=== PATIENT | male | born 1955 | race Caucasian/White ===

== ENCOUNTER 2017-06-03 07:34 | Day surgery (SDC) | payer BC ==
[2017-06-03] MEDS ORDERED: Sodium Chloride 0.9% 10 ML Syringe FLUSH PRN (07:45)
[2017-06-03] MEDS ORDERED: Lactated Ringers 1,000 ML IV SCH (07:45)
[2017-06-03] MEDS ORDERED: Simethicone Drops 40 MG/0.6 ML 30 ML Bottle ONE (09:29)
[2017-06-03] MEDS ORDERED: Midazolam 1 MG/ML 2 ML SDV IV ONE (09:30)
[2017-06-03] MEDS ORDERED: Propofol 200 MG/20 ML SDV IV ONE (09:30)
--- NOTE | 2017-06-03 09:43 | PCM.OPNOTE ---
- General Post-Op/Procedure Note Date of Surgery/Procedure: 06/03/17 Operative Procedure(s): c scope with bx Findings: descending colon polyp Pre Op Diagnosis: screening Post-Op Diagnosis: descending colon polyp Anesthesia Technique: MAC Primary Surgeon: Hari Mantilla Anesthesia Provider: Raul Carey Pathology: descending colon polyp Complications: None Condition: Good Free Text/Narrative:: see dictation
--- NOTE | 2017-06-03 15:19 | OR ---
DATE OF OPERATION: 06/03/2017 SURGEON: Hari Mantilla MD PROCEDURE PERFORMED: Colonoscopy with cold forceps biopsy. PREOPERATIVE DIAGNOSIS: Need for screening colonoscopy. POSTOPERATIVE DIAGNOSIS: Descending colon polyp. INDICATIONS FOR PROCEDURE: This is a 61-year-old white male who presents for his initial screening colonoscopy. He was offered and accepted same. DESCRIPTION OF OPERATION: After an excellent IV sedation was administered, digital rectal exam was performed. No marked abnormality was noted. The flexible colonoscope was inserted and advanced to the cecum without difficulty. The prep was excellent. The following findings were noted. Ascending colon unremarkable. Transverse colon unremarkable. Descending colon: A small polypoid lesion, approximately 3 mm in size, biopsied with cold biopsy forceps,and sent for permanent. Sigmoid and rectum unremarkable. Colon was deflated. The scope was removed. The patient tolerated the procedure well. Results by letter. /[id number] AMELIE/LAURA
== END 2017-06-03 10:50 | disposition home or self-care (01) ==
LOC: FB.SDS 07:34
PROVIDERS: ATTEND Surgery
DX: Z12.11 Encounter for screening for malignant neoplasm of colon (principal); D12.4 Benign neoplasm of descending colon; I10 Essential (primary) hypertension; E66.9 Obesity, unspecified; Z79.84 Long term (current) use of oral hypoglycemic drugs; Z79.899 Other long term (current) drug therapy; Z98.890 Other specified postprocedural states
CPT/HCPCS: 45380; 82962; 88305; A9270; J2250; J2704; J7120

== ENCOUNTER 2019-06-08 07:11 | Day surgery (SDC) | payer BC ==
[2019-06-08] MEDS ORDERED: Propofol 200 MG/20 ML SDV IV ONE (07:12)
[2019-06-08] MEDS ORDERED: Lidocaine 1% PF 2 ML SDV INJECT ONE (07:12)
[2019-06-08] MEDS ORDERED: Sodium Chloride 0.9% 10 ML Syringe FLUSH PRN (07:15)
[2019-06-08] MEDS ORDERED: Lactated Ringers 1,000 ML IV SCH (07:15)
--- NOTE | 2019-06-08 09:33 | PCM.OPNOTE ---
- General Post-Op/Procedure Note Date of Surgery/Procedure: 06/08/19 Operative Procedure(s): c scope with cold forcep and hot loop snare biospy Findings: ascending colon polyp x4 5 mm x2 1 cm -2 cm x2 Pre Op Diagnosis: heme + stools Post-Op Diagnosis: ascending colon polyp x4 Anesthesia Technique: FAUSTINO Primary Surgeon: Hari Mantilla Anesthesia Provider: Yung Salvador Pathology: ascending colon polyp x4 Complications: None Condition: Good Free Text/Narrative:: see dictation
--- NOTE | 2019-06-08 09:33 | PREOP ---
ADMISSION DATE: 06/08/2019 CHIEF COMPLAINT: Heme-positive stools on recent physical exam. HISTORY OF PRESENT ILLNESS: A 63-year-old white male was undergoing his recent physical exam, had a rectal exam performed, was noted to be guaiac positive. He is completely asymptomatic. His next colonoscopy is due in 2022; however, given his complaint of the finding, we recommended that we move this up. SOCIAL HISTORY: The patient does not smoke. Has approximately 12 cans of beer a week. PAST MEDICAL HISTORY: Significant for hypertension. PAST SURGICAL HISTORY: Significant for colonoscopy. MEDICATIONS INCLUDE: 1. Viagra 100 mg 1/2 tablet on a p.r.n. basis. 2. Toprol XL 50 mg daily. 3. Lipitor 10 mg at bedtime. 4. Hyzaar 100/25 mg tablets 1 tablet q.a.m. 5. Lasix 40 mg 1 time per day. 6. Metformin 500 mg b.i.d. 7. Baby aspirin 81 mg 1 time per day. REVIEW OF SYSTEMS: HEENT: The patient denies any issues with HEENT. PULMONARY/CARDIAC: Negative. GASTROINTESTINAL: Negative. GENITOURINARY: Negative. NEUROLOGIC: Negative. PHYSICAL EXAMINATION: GENERAL: This is a well-developed, well-nourished white male, appearing in no acute distress. HEENT: Within normal limits. LUNGS: Clear to auscultation. HEART: Had regular rate and rhythm with a systolic ejection murmur audible. ABDOMEN: Soft, nontender. ASSESSMENT: History of heme-positive stools. PLAN: Colonoscopy. Procedure and risks explained to the patient to include bleeding, perforation, and infection. The patient expresses understanding and he asked us to proceed. /[id number] /MODL
--- NOTE | 2019-06-08 10:22 | OR ---
DATE OF OPERATION: 06/08/2019 SURGEON: Hari Mantilla MD PROCEDURE PERFORMED: Colonoscopy with cold forceps biopsy. PREOPERATIVE DIAGNOSIS: Heme-positive stools on recent physical exam. POSTOPERATIVE DIAGNOSIS: Ascending colon polyps x4. INDICATIONS FOR PROCEDURE: This is a 63-year-old white male who was noted to have heme-positive stools on physical exam. He was offered and accepted colonoscopy. DESCRIPTION OF OPERATION: After an excellent IV sedation was administered, digital rectal exam was performed. No marked abnormality was noted. Flexible colonoscope was inserted and advanced to the cecum. Prep was excellent. Following findings were noted. Ascending colon, remarkable for a grand total of 4 polyps. Two of them were biopsied with cold forceps. The other two were taken with hot forceps and were submitted in 1 container. The largest of the 2 were approximately 1 and 2 cm in their greatest width. Transverse colon was unremarkable. Descending colon was unremarkable. Sigmoid and rectum were unremarkable. The patient tolerated the procedure well, was taken to recovery room in good condition. Results will be sent to the patient by letter. /[id number] /MODL
== END 2019-06-08 10:18 | disposition home or self-care (01) ==
LOC: FB.SDS 07:11
PROVIDERS: ATTEND Surgery
DX: D12.2 Benign neoplasm of ascending colon (principal); I10 Essential (primary) hypertension; E66.9 Obesity, unspecified; Z68.41 Body mass index [BMI] 40.0-44.9, adult
CPT/HCPCS: 88305; J2001; J2704; J7120

== ENCOUNTER 2020-07-06 22:01 | Emergency (ER) | payer MEDICARE, BC ==
[2020-07-06] MEDS ORDERED: Diltiazem 25 MG/5 ML SDV IVPUSH ONE (22:22)
[2020-07-06] MEDS ORDERED: Potassium Chloride 20 MEQ Tab.ER PO ONE (22:54)
--- NOTE | 2020-07-06 22:54 | EDM.PDOC ---
ED HPI GENERAL MEDICAL PROBLEM - General Stated Complaint: RACING HEART Time Seen by Provider: 07/06/20 22:10 Source of Information: Reports: Patient, Family History Limitations: Reports: No Limitations - History of Present Illness INITIAL COMMENTS - FREE TEXT/NARRATIVE: c/o palpitations pt with palpitations last night at 1a, said he does not sleep well, no CP, HR 126 at 1a when he checked his BP, resolved in 15 min went to cardiac rehab here for 30 minutes today, felt okay during day at 9p he had palpitations again his diuretic was stopped 1w after d/c from hosp he had AVR for on 06/[address] Linda Riley in [facility], had gone for preop for TKR and told he had to have AVR replacement first, did not know he had heart issues no cp, no sob, had had COVID vax x 2, did not have COVID, feels fine otherwise - Related Data Allergies Allergy/AdvReac Type Severity Reaction Status Date / Time No Known Allergies Allergy Verified 07/06/20 22:36 Home Meds: Home Meds Aspirin [Halfprin] 81 mg PO DAILY 06/02/17 [History] Furosemide 40 mg PO DAILY 06/02/17 [History] Hydrochlorothiazide/Losartan [Hyzaar 50-12.5 MG] 0.5 tab PO DAILY 06/02/17 [History] Metoprolol Succinate 50 mg PO DAILY 06/02/17 [History] Sildenafil [Viagra] 50 mg PO ASDIRECTED PRN 06/02/17 [History] atorvaSTATin Calcium [Atorvastatin Calcium] 10 mg PO BEDTIME 06/02/17 [History] metFORMIN HCl [Metformin HCl] 500 mg PO BID 06/02/17 [History] Past Medical History Cardiovascular History: Reports: Hypertension, Other (See Below) Other Cardiovascular History: aortic valve stenosis Gastrointestinal History: Reports: Colon Polyp Musculoskeletal History: Reports: Arthritis Endocrine/Metabolic History: Reports: Obesity/BMI 30+ - Past Surgical History GI Surgical History: Reports: Colonoscopy Social & Family History - Caffeine Use Caffeine Use: Reports: Coffee ED ROS GENERAL - Review of Systems Review Of Systems: See Below Constitutional: Reports: No Symptoms HEENT: Reports: No Symptoms Respiratory: Reports: No Symptoms. Denies: Shortness of Breath, Cough Cardiovascular: Reports: Edema, Palpitations. Denies: Chest Pain Endocrine: Reports: No Symptoms GI/Abdominal: Reports: No Symptoms : Reports: No Symptoms Musculoskeletal: Reports: No Symptoms Skin: Reports: No Symptoms Neurological: Reports: No Symptoms Psychiatric: Reports: No Symptoms Hematologic/Lymphatic: Reports: No Symptoms Immunologic: Reports: No Symptoms ED EXAM, GENERAL - Physical Exam Exam: See Below Exam Limited By: No Limitations General Appearance: Alert, WD/WN, No Apparent Distress, Other (pleasant, dec'd HR 115 to 95 after dilt 10 mg IV, stable BP) Eye Exam: Bilateral Eye: Foreign Body, PERRL Ears: Hearing Grossly Normal Nose: Normal Inspection Throat/Mouth: Normal Inspection Head: Atraumatic, Normocephalic Neck: Normal Inspection, Supple, Non-Tender, Full Range of Motion. No: Lymphadenopathy (R), Lymphadenopathy (L) Respiratory/Chest: No Respiratory Distress, Lungs Clear, Normal Breath Sounds, Chest Non-Tender Cardiovascular: Regular Rate, Rhythm, No Edema, No Murmur GI/Abdominal: Soft, Non-Tender, No Distention Back Exam: Normal Inspection, Full Range of Motion Extremities: Normal Inspection, Normal Range of Motion, Other (2+ pretib edema to knees b/l) Neurological: Alert, Oriented, CN II-XII Intact, Normal Cognition, No Motor/Sensory Deficits Psychiatric: Normal Affect, Normal Mood Skin Exam: Warm, Dry, Intact, Normal Color, No Rash Lymphatic: No Adenopathy #1 Interpretation EKG Interpretation Comments: afib with RVR, no acute ST changes, no comparison Course - Vital Signs Last Recorded V/S: Last Vital Signs Temp 36.7 C 07/06/20 22:01 Pulse 134 H 07/06/20 22:01 Resp 20 07/06/20 22:01 BP 172/89 H 07/06/20 22:01 Pulse Ox 98 07/06/20 22:01 - Orders/Labs/Meds Orders: Active Orders 24 hr Category Date Time Status EKG Documentation Completion [RC] ASDIRECTED Care 07/06/20 22:24 Ordered Chest 1V Frontal [CR] Stat Exams 07/06/20 22:23 Ordered MAGNESIUM [CHEM] Stat Lab 07/06/20 22:53 Ordered UA W/MICROSCOPIC [URIN] Stat Lab 07/06/20 22:24 Ordered Diltiazem 125 MG in Normal Saline @ 5 MG/HR (125 ml) Med 07/06/20 23:00 Ordered Diltiazem 125 mg Sodium Chloride 0.9% [Normal Saline] 100 ml IV TITRATE EKG 12 Lead [EK] Routine Ther 07/06/20 22:24 Ordered Medication Orders Diltiazem HCl 125 mg/ Sodium (Chloride) 125 mls @ 5 mls/hr IV TITRATE CHRISTINE; Protocol Labs: Laboratory Tests 07/06/20 07/06/20 07/06/20 Range/Units 22:20 22:20 22:20 WBC 7.6 (3.2-10.1) x10-3/uL RBC 4.69 (3.90-5.90) x10(6)uL Hgb 14.1 (12.9-17.7) g/dL Hct 42.4 (38.3-50.1) % MCV 90.5 (80.8-98.7) fL MCH 30.0 (27.0-33.3) pg MCHC 33.1 (28.7-35.3) g/dL RDW 14.1 (12.4-15.0) % Plt Count 166 (117-477) x10(3)uL MPV 8.2 (6.7-11.0) fL Neut % (Auto) 49.6 (40.3-71.8) % Lymph % (Auto) 30.8 (15.8-45.3) % Ellsworth % (Auto) 15.2 (5.5-15.2) % Eos % (Auto) 3.5 (0.1-6.8) % Baso % (Auto) 0.9 (0.3-3.8) % Neut # (Auto) 3.7 (1.7-6.9) x10-3/uL Lymph # (Auto) 2.3 (0.5-4.5) x10-3/uL Ellsworth # (Auto) 1.1 (0.0-1.2) x10-3/uL Eos # (Auto) 0.3 (0.0-0.6) x10-3/uL Baso # (Auto) 0.1 (0.0-0.3) x10-3/uL PT (9.0-11.1) sec INR (1.00-1.24) APTT (24.4-33.2) SECONDS Sodium 129 L (135-145) mmol/L Potassium 2.7 L* (3.5-5.3) mmol/L Chloride 87 L* (100-110) mmol/L Carbon Dioxide 36 H (21-32) mmol/L BUN 20 H (7-18) mg/dL Creatinine 1.6 H (0.70-1.30) mg/dL Est Cr Clr Drug Dosing 49.68 mL/min Estimated GFR (MDRD) 44 L (>60) BUN/Creatinine Ratio 12.5 (9-20) Glucose 174 H (80-116) mg/dL Calcium 8.6 (8.6-10.2) mg/dL Total Bilirubin 1.3 (0.1-1.3) mg/dL AST 69 H (5-25) IU/L ALT 40 H (12-36) U/L Alkaline Phosphatase 164 H (56-112) IU/L Troponin I 39.7 (4.0-60.3) pg/mL C-Reactive Protein 1.5 H (0.5-0.9) mg/dL NT-Pro-B Natriuret Pep (<=125) pg/mL Total Protein 8.5 H (6.0-8.0) g/dL Albumin 3.4 (3.2-4.6) g/dL Globulin 5.1 g/dL Albumin/Globulin Ratio 0.7 07/06/20 07/06/20 Range/Units 22:20 22:20 WBC (3.2-10.1) x10-3/uL RBC (3.90-5.90) x10(6)uL Hgb (12.9-17.7) g/dL Hct (38.3-50.1) % MCV (80.8-98.7) fL MCH (27.0-33.3) pg MCHC (28.7-35.3) g/dL RDW (12.4-15.0) % Plt Count (117-477) x10(3)uL MPV (6.7-11.0) fL Neut % (Auto) (40.3-71.8) % Lymph % (Auto) (15.8-45.3) % Ellsworth % (Auto) (5.5-15.2) % Eos % (Auto) (0.1-6.8) % Baso % (Auto) (0.3-3.8) % Neut # (Auto) (1.7-6.9) x10-3/uL Lymph # (Auto) (0.5-4.5) x10-3/uL Ellsworth # (Auto) (0.0-1.2) x10-3/uL Eos # (Auto) (0.0-0.6) x10-3/uL Baso # (Auto) (0.0-0.3) x10-3/uL PT 18.5 H (9.0-11.1) sec INR 1.78 H (1.00-1.24) APTT 30.0 (24.4-33.2) SECONDS Sodium (135-145) mmol/L Potassium (3.5-5.3) mmol/L Chloride (100-110) mmol/L Carbon Dioxide (21-32) mmol/L BUN (7-18) mg/dL Creatinine (0.70-1.30) mg/dL Est Cr Clr Drug Dosing mL/min Estimated GFR (MDRD) (>60) BUN/Creatinine Ratio (9-20) Glucose (80-116) mg/dL Calcium (8.6-10.2) mg/dL Total Bilirubin (0.1-1.3) mg/dL AST (5-25) IU/L ALT (12-36) U/L Alkaline Phosphatase (56-112) IU/L Troponin I (4.0-60.3) pg/mL C-Reactive Protein (0.5-0.9) mg/dL NT-Pro-B Natriuret Pep 1067 H* (<=125) pg/mL Total Protein (6.0-8.0) g/dL Albumin (3.2-4.6) g/dL Globulin g/dL Albumin/Globulin Ratio Meds: Medications Generic Name Dose Route Start Last Admin Trade Name Freq PRN Reason Stop Dose Admin Diltiazem HCl 125 mg/ Sodium 125 mls @ 5 mls/hr 07/06/20 23:00 Chloride IV TITRATE CHRISTINE Protocol 5 MG/HR Discontinued Medications Generic Name Dose Route Start Last Admin Trade Name Freq PRN Reason Stop Dose Admin Diltiazem HCl 10 mg 07/06/20 22:22 Diltiazem 25 Mg/5 Ml Sdv IVPUSH 07/06/20 22:23 ONETIME ONE Furosemide 40 mg 07/06/20 22:58 Furosemide 40 Mg/4 Ml Vial IVPUSH 07/06/20 22:59 NOW ONE Potassium Chloride 40 meq 07/06/20 22:54 Potassium Chloride 20 Meq Tab.Er PO 07/06/20 22:55 ONETIME ONE - Re-Assessments/Exams Free Text/Narrative Re-Assessment/Exam: 07/06/20 23:16 trop neg, BNP inc'd as expected no comparison available CxR 1v on prelim ED read with small b/l pleural effusions, mild congestion without infiltrates, cardiomegaly even on portable 07/06/20 23:39 d/w Dr Jose at [facility] who accepted pt to hospital bed, pt and agree to transfer low K, Mg wnl still not voided here BP down to 127/77, HR dec'd 80s and irreguar, now 105 mild inc'd CRP c/w postop Departure - Departure Time of Disposition: 23:40 Disposition: DC/Tfer to Acute Hospital 02 Reason for Transfer *Q: Other Condition: Good Clinical Impression: Atrial fibrillation with rapid ventricular response, Fluid overload, Bilateral pleural effusion, Cardiomegaly, Hypokalemia, Acute prerenal azotemia, Hyperglycemia, Elevated liver function tests, Elevated brain natriuretic peptide (BNP) level Sepsis Event Note (ED) - Focused Exam Vital Signs: Vital Signs Temp Pulse Resp BP Pulse Ox 07/06/20 22:01 36.7 C 134 H 20 172/89 H 98 - My Orders Last 24 Hours: My Active Orders 07/06/20 22:23 Chest 1V Frontal [CR] Stat 07/06/20 22:24 EKG Documentation Completion [RC] ASDIRECTED UA W/MICROSCOPIC [URIN] Stat EKG 12 Lead [EK] Routine 07/06/20 22:53 MAGNESIUM [CHEM] Stat 07/06/20 23:00 Diltiazem 125 MG in Normal Saline @ 5 MG/HR (125 ml) Diltiazem 125 mg Sodium Chloride 0.9% [Normal Saline] 100 ml IV TITRATE - Assessment/Plan Last 24 Hours: My Active Orders 07/06/20 22:23 Chest 1V Frontal [CR] Stat 07/06/20 22:24 EKG Documentation Completion [RC] ASDIRECTED UA W/MICROSCOPIC [URIN] Stat EKG 12 Lead [EK] Routine 07/06/20 22:53 MAGNESIUM [CHEM] Stat 07/06/20 23:00 Diltiazem 125 MG in Normal Saline @ 5 MG/HR (125 ml) Diltiazem 125 mg Sodium Chloride 0.9% [Normal Saline] 100 ml IV TITRATE
[2020-07-06] MEDS ORDERED: Furosemide 40 MG/4 ML VIAL IVPUSH ONE (22:58)
[2020-07-06] MEDS ORDERED: Diltiazem 125 MG in Sodium Chloride 0.9% 100 ML IV SCH (23:00)
[2020-07-07] MEDS ORDERED: Sodium Chloride 0.9% 250 ML IV ONE (00:04)
== END 2020-07-07 01:43 ==
LOC: FB.ED 22:01
DX: I11.9 Hypertensive heart disease without heart failure (principal); I48.91 Unspecified atrial fibrillation; J90 Pleural effusion, not elsewhere classified; E87.70 Fluid overload, unspecified; E87.6 Hypokalemia; E11.65 Type 2 diabetes mellitus with hyperglycemia; R79.89 Other specified abnormal findings of blood chemistry; E66.9 Obesity, unspecified; Z68.41 Body mass index [BMI] 40.0-44.9, adult; Z79.82 Long term (current) use of aspirin; Z79.899 Other long term (current) drug therapy
CPT/HCPCS: 36415; 71045; 80053; 83735; 83880; 84484; 85025; 85610; 85730; 86140; 93005; 96365; 96375; 96376; 99285; A9270; J1940; J3490; J7050

== ENCOUNTER 2021-11-17 22:06 | Observation (INO) | payer MEDICARE, BC ==
[2021-11-17] MEDS ORDERED: Aspirin 81 MG Tab.Chew PO ONE (22:43)
[2021-11-17 23:17] LABS: ESTIMATED GFR 74 mL/min (>60)
[2021-11-18] MEDS ORDERED: Warfarin 5 MG Tab PO SCH (00:45)
[2021-11-18] MEDS ORDERED: METOLAZONE 5 MG PO PRN (00:45)
[2021-11-18 01:13] LABS: CORONAVIRUS COVID-19 NAA NEGATIVE (NEGATIVE)
[2021-11-18 06:46] LABS: ESTIMATED GFR 94 mL/min (>60)
[2021-11-18] MEDS: Potassium Chloride 20 MEQ Tab.ER *PTOM PO SCH ×3 (09:19→20:39)
[2021-11-18] MEDS: metFORMIN 500 MG Tab *PTOM PO SCH ×2 (09:27→18:14)
[2021-11-18] MEDS: Furosemide 40 MG Tab *PTOM PO SCH ×2 (09:28→14:18)
[2021-11-18] MEDS: Aspirin 81 MG Tab.EC *PTOM PO SCH (09:28)
[2021-11-18] MEDS: Metoprolol Succinate 25 MG Tab.ER *PTOM PO SCH (09:29)
[2021-11-18] MEDS: Psyllium Husk Powder Sugar Free 5.85 GM Packet PO SCH ×2 (09:33→20:40)
[2021-11-18] MEDS ORDERED: Warfarin Sliding Scale PO SCH (16:00)
[2021-11-18] MEDS ORDERED: Warfarin 5 MG Tab *PTOM PO SCH (16:00)
[2021-11-18] MEDS: Meclizine 12.5 MG Tab PO PRN (16:31)
[2021-11-18] MEDS ORDERED: Zolpidem 10 MG Tab PO ONE (20:16)
[2021-11-18] MEDS ORDERED: atorvaSTATin 10 MG Tab *PTOM PO SCH (21:00)
[2021-11-19] MEDS ORDERED: Warfarin 5 MG Tab PO SCH (00:45)
[2021-11-19] MEDS: Meclizine 12.5 MG Tab PO PRN (03:40)
[2021-11-19] MEDS: metFORMIN 500 MG Tab *PTOM PO SCH (08:15)
[2021-11-19] MEDS: Furosemide 40 MG Tab *PTOM PO SCH (08:16)
[2021-11-19 08:32] VITALS: BP 146/75; PULSE 71
[2021-11-19] MEDS: Potassium Chloride 20 MEQ Tab.ER *PTOM PO SCH (08:32)
[2021-11-19] MEDS: Psyllium Husk Powder Sugar Free 5.85 GM Packet PO SCH (08:33)
[2021-11-19] MEDS: Metoprolol Succinate 25 MG Tab.ER *PTOM PO SCH (08:34)
[2021-11-19] MEDS: Aspirin 81 MG Tab.EC *PTOM PO SCH (08:35)
[2021-11-19] MEDS ORDERED: WARFARIN 5 MG PO SCH (16:00)
== END 2021-11-19 10:53 | disposition home or self-care (01) ==
LOC: FB.ED 22:06 → FB.MS 11-18 00:36
PROVIDERS: ADMIT Family Medicine; ATTEND Family Medicine
DX: H81.4 Vertigo of central origin (principal); I10 Essential (primary) hypertension; E11.69 Type 2 diabetes mellitus with other specified complication; R26.81 Unsteadiness on feet; M19.90 Unspecified osteoarthritis, unspecified site; I49.3 Ventricular premature depolarization; Z20.822 Contact with and (suspected) exposure to COVID-19; Z95.2 Presence of prosthetic heart valve; Z79.84 Long term (current) use of oral hypoglycemic drugs; Z79.899 Other long term (current) drug therapy; Z79.82 Long term (current) use of aspirin; Z98.890 Other specified postprocedural states; Z96.641 Presence of right artificial hip joint; Z96.652 Presence of left artificial knee joint
CPT/HCPCS: 0240U; 36415; 71045; 80048; 80053; 82947; 83735; 83880; 84484; 85025; 85610; 93005; 95992-GP; 97110-GP; 97161-GP; 99285; A9270-GY; G0378

== ENCOUNTER 2022-06-20 06:55 | Day surgery (SDC) | payer MEDICARE, BC ==
[2022-06-20] MEDS ORDERED: Propofol 200 MG/20 ML SDV IV ONE (06:56)
[2022-06-20] MEDS ORDERED: Ketamine 500 mg/10 ML MDV IV ONE (06:56)
[2022-06-20] MEDS ORDERED: Lidocaine 2% 5 ML SDV IV ONE (06:56)
[2022-06-20] MEDS ORDERED: Lactated Ringers 1,000 ML IV SCH (07:00)
[2022-06-20] MEDS ORDERED: Sodium Chloride 0.9% 10 ML Syringe FLUSH PRN (07:00)
[2022-06-20] MEDS ORDERED: Simethicone Drops 40 MG/0.6 ML 30 ML Bottle PO ONE (08:19)
== END 2022-06-20 09:50 | disposition home or self-care (01) ==
LOC: FB.SDS 06:55
PROVIDERS: ATTEND Surgery
DX: Z12.11 Encounter for screening for malignant neoplasm of colon (principal); D12.6 Benign neoplasm of colon, unspecified; K57.30 Diverticulosis of large intestine without perforation or abscess without bleeding; I10 Essential (primary) hypertension; E66.9 Obesity, unspecified; E11.9 Type 2 diabetes mellitus without complications; K40.90 Unilateral inguinal hernia, without obstruction or gangrene, not specified as recurrent; R79.89 Other specified abnormal findings of blood chemistry; I35.0 Nonrheumatic aortic (valve) stenosis; Z86.010 Personal history of colon polyps; Z80.0 Family history of malignant neoplasm of digestive organs; Z79.01 Long term (current) use of anticoagulants; Z95.4 Presence of other heart-valve replacement; Z79.899 Other long term (current) drug therapy; Z98.890 Other specified postprocedural states
CPT/HCPCS: 00811; 82947; 88305; A9270-GY; J2704; J3490; J7120